=== PATIENT | male | born 1965 | race Caucasian/White ===

== ENCOUNTER 2020-06-17 09:35 | Day surgery (SDC) | payer OTHER ==
[2020-06-15 13:07] VITALS: BMI 39.8
[~2020-06-17 09:35] MED LIST: LACTATED RINGERS 1,000 ML IV SCH
[2020-06-17 10:12] VITALS: TEMP 97.2
[2020-06-17] MEDS ORDERED: PROPOFOL 10 MG/ML 20 ML VIAL IV ONE (10:46)
[2020-06-17] MEDS ORDERED: LIDOCAINE 1% INJ 10MG/ML (20 ML MDV) ONE (10:46)
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
--- NOTE | 2020-06-17 11:03 | P.OP ---
Date of Procedure: 06/17/20 Preoperative Diagnosis: Epigastric abdominal pain Screening colonoscopy Postoperative Diagnosis: Duodenitis Mild antral gastritis Procedure(s) Performed: EGD Colonoscopy Anesthesia: MAC Surgeon: Yuri Castañeda Pathology: other (Duodenum, antrum) Condition: stable Disposition: PACU Description of Procedure: Patient's placed on the endoscopy table in the lateral position. He received IV sedation. The gastroscope placed oropharynx and passed in the esophagus and stomach. Scope was placed through the pylorus. The first and second portion of duodenum appeared inflamed. A biopsies performed. Scope was brought back the antrum this is minimal inflamed. A biopsies was performed. Scope was then retroflexed the remainder of the stomach. Appeared normal. The GE junction was at 40 cm. There is no significant hiatal hernia. The distal esophagus normal. The proximal esophagus. Scope was withdrawn. Next digital rectal exam performed. The prostate was symmetric without nodules. The flexible colonoscope was then placed patient anus and passed throughout the entire colon. The cecal valve was visualized. Cecum, ascending and transverse colon appeared normal. The descending; there was a few scattered diverticula. There is no evidence of diverticulitis. Scope was then brought back the rectum appeared normal. The scope was then withdrawn for patient.
[2020-06-17 11:08] VITALS: RESP 17
[2020-06-17 11:21] VITALS: BP 117/76; PULSE 78
== END 2020-06-17 11:48 | disposition home or self-care (01) ==
LOC: ORWHC2ENDO 09:35
PROVIDERS: ATTEND Surgery
DX: Z12.11 Encounter for screening for malignant neoplasm of colon (principal); K57.30 Diverticulosis of large intestine without perforation or abscess without bleeding; K29.50 Unspecified chronic gastritis without bleeding; K29.80 Duodenitis without bleeding; G47.33 Obstructive sleep apnea (adult) (pediatric); Z99.89 Dependence on other enabling machines and devices; Z98.890 Other specified postprocedural states; Z91.012 Allergy to eggs
CPT/HCPCS: 88305; 88342; 43239; J2001; J2704; G0121; 45378

== ENCOUNTER 2021-01-05 09:35 | Day surgery (SDC) | payer OTHER ==
[2021-01-03 13:43] VITALS: BMI 38.0
[2021-01-05 10:26] VITALS: RESP 16; TEMP 98.8
[2021-01-05] MEDS ORDERED: LIDOCAINE 1% INJ 10MG/ML (20 ML MDV) ONE (10:54)
[2021-01-05] MEDS ORDERED: PROPOFOL 10 MG/ML 20 ML VIAL IV ONE (10:54)
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
--- NOTE | 2021-01-05 11:04 | P.OP ---
Date of Procedure: 01/05/21 Preoperative Diagnosis: Gastritis, history of H. pylori Postoperative Diagnosis: Antral ulcer Procedure(s) Performed: EGD Anesthesia: MAC Surgeon: Yuri Castañeda Pathology: other (Antral ulcer, antrum) Condition: stable Disposition: PACU Description of Procedure: The patient's placed on the endoscopy table lateral position. He received IV sedation. The gastro-/oropharynx passed in the esophagus and stomach. Scope was then placed through the pylorus. The first and second portion of the duodenum appeared normal. Scope was then brought back the antrum there was antral ulcer seen. This was biopsied. Another antral biopsies performed away from the ulcer. The scope was retroflexed remainder stomach appeared normal. The GE junction was at 40 cm. The distal esophagus appeared normal the proximal esophagus appeared normal. Scope was withdrawn for patient.
[2021-01-05 11:23] VITALS: BP 128/85; PULSE 77
== END 2021-01-05 11:51 | disposition home or self-care (01) ==
LOC: ORWHC2ENDO 09:35
PROVIDERS: ATTEND Surgery
DX: K25.9 Gastric ulcer, unspecified as acute or chronic, without hemorrhage or perforation (principal); K29.70 Gastritis, unspecified, without bleeding; E78.5 Hyperlipidemia, unspecified; G47.33 Obstructive sleep apnea (adult) (pediatric); Z86.19 Personal history of other infectious and parasitic diseases
CPT/HCPCS: 43239; J2001; J2704; 88305; 88342